=== PATIENT | female | born 2000 | race Caucasian/White ===

== ENCOUNTER → 2021-10-22 11:39 | Outpatient (CLI) | payer OTHER, SELFPAY ==
--- NOTE | 2021-10-22 | DI.MRI.S_ITS ---
PROCEDURE: MR LOWER LEG LT WO CON COMPARISON: None. INDICATIONS: Unspecified injury of unspecified lower leg Technique: Noncontrast sagittal, axial, and coronal T1 and fat saturated T2 sequences the left lower leg. FINDINGS: Visualized osseous structures are within normal limits. Soft tissues are grossly unremarkable. No fluid collections. No evidence of muscle injury. IMPRESSION: No evidence of injury to the left lower leg. Dictated by: Augustine Hammonds M.D. on 10/22/2021 at 12:07 Approved by: Augustine Hammonds M.D. on 10/22/2021 at 12:08
--- NOTE | 2021-10-22 | DI.MRI.S_ITS ---
PROCEDURE: MR LOWER LEG RT WO CON INDICATIONS: Unspecified injury of unspecified lower leg TECHNIQUE: Noncontrast coronal and sagittal T1 spin echo and STIR; axial T1 spin echo and T2 fast spin echo with fat saturation through the right lower leg. COMPARISON: None. FINDINGS: Image quality: Excellent. Bones: The visualized bone marrow demonstrates normal signal on all sequences. The overlying cortex appears intact. No fractures lines or intra-osseous lesions. Soft tissues: The scanned muscles demonstrate normal overall bulk and internal signal. Subcutaneous tissues appear normal as well. No soft tissue masses are present. IMPRESSION: No evidence of injury to the lower leg. Dictated by: Augustine Hammonds M.D. on 10/22/2021 at 12:05 Approved by: Augustine Hammonds M.D. on 10/22/2021 at 12:07
== END ==
PROVIDERS: Referring Provider Family Medicine; Visit Provider Family Medicine
DX: S89.91XA Unspecified injury of right lower leg, initial encounter (principal); S89.92XA Unspecified injury of left lower leg, initial encounter; X58.XXXA Exposure to other specified factors, initial encounter
CPT/HCPCS: 73718